=== PATIENT | male | born 2005 | race Two or more races ===

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

== ENCOUNTER 2025-06-10 17:58 | Emergency (ER) | payer MEDICAID, OTHER | END 2025-06-10 19:58 | disposition left against medical advice (07) | LOC: ER 18:22 | DX: M79.606 Pain in leg, unspecified (principal); Z53.21 Procedure and treatment not carried out due to patient leaving prior to being seen by health care provider ==